=== PATIENT | male | born 1970 | race Caucasian/White ===

== ENCOUNTER → 2021-04-04 09:58 | Outpatient (BNVA) | payer SELFPAY | PROVIDERS: Visit Provider Nurse Practitioner Family | DX: Z00.00 Encounter for general adult medical examination without abnormal findings (principal) | CPT/HCPCS: 81000 ==

== ENCOUNTER 2022-01-10 09:51 | Outpatient (CLI) | payer OTHER, SELFPAY ==
--- NOTE | 2022-01-10 10:02 | CT_ITS ---
WS: [id number] CT HEAD TECHNIQUE: Noncontrast CT of the head obtained from the skullbase to the vertex. CLINICAL INFORMATION: NEW ONSET OCCIPITAL MEADOWS W/VERTIGO COMPARISON: None. DLP: 1223.[address] scans at [facility] use at least one of these dose optimization techniques: automated e xposure control; mA and/or kV adjustment per patient size (includes targeted exams where dose is matc hed to clinical indication); or iterative reconstruction. FINDINGS: No evidence of intracranial hemorrhage or mass effect. Ventricular system and basal cisterns are nino nt. No extra-axial fluid collections. No evidence of mass or mass effect. Normal menjivar-white different iation. Paranasal sinuses and mastoid air cells are well aerated. .Normal visualized soft tissues. CT/CT head wo con* [id number] IMPRESSION: 1. No evidence of intracranial hemorrhage or mass effect. 2. Normal menjivar-white differentiation. 3. Paranasal sinuses and mastoid air cells well aerated. 4. No acute intracranial findings.
== END 2022-01-10 09:52 | disposition home or self-care (01) ==
LOC: RAD 09:57
PROVIDERS: PCP Family Medicine; Visit Provider Family Medicine
DX: Z01.89 Encounter for other specified special examinations (principal); R51.9 Headache, unspecified; R42 Dizziness and giddiness
CPT/HCPCS: 70450

== ENCOUNTER → 2023-04-30 14:00 | Outpatient (BNVA) | payer OTHER, SELFPAY | PROVIDERS: PCP Family Medicine; Referring Provider Registered Nurse; Visit Provider Orthopaedic Surgery | DX: M54.9 Dorsalgia, unspecified (principal) | CPT/HCPCS: 72110 ==

== ENCOUNTER 2023-09-16 09:07 | Outpatient (CLI) | payer OTHER, SELFPAY ==
--- NOTE | 2023-09-16 09:30 | MR_ITS ---
WS: [id number] MRI LUMBAR SPINE NONCONTRAST HISTORY: Back pain COMPARISON: Lumbar spine radiographs 04/30/2023 TECHNIQUE: Sagittal and axial multisequence imaging is submitted. Quality this examination is compromised by patient's body habitus. Lipoma measuring 6.8 x 5.2 cm is d emonstrated in the posterior upper thorax. Normal lumbar alignment with no compression fractures or marrow edema. Very minimal disc desiccation throughout the lumbar spine. Disc spaces are well-maintained otherwise. Conus terminates normally at L1-2 disc level. L1-L2: Mild annular disc bulging encroaching upon the ventral thecal sac. There is mild disc encroach ment into the subarticular recesses with slight contact on the traversing L2 nerve roots. No foramina l stenosis. L2-L3: Diffuse annular disc bulging with a central disc protrusion. Deformity of the ventral thecal s ac. Mild central and bilateral subarticular recess stenosis. Disc encroachment upon the traversing L3 nerve roots. L3-L4: Mild disc bulging. Moderate ligamentum flavum and facet arthritis. Disc encroaches into the farrar barticular recesses. Mild central with mild to moderate bilateral subarticular recess stenosis. There is additional disc contacting the RIGHT exiting L3 nerve root. Mild bilateral foraminal stenosis. L4-L5: Mild annular disc bulging and facet arthritis. Central disc protrusion deforms the ventral the thompson sac. Very mild bilateral subarticular recess and foraminal stenosis. L5-S1: Mild disc bulging. There is a shallow RIGHT subarticular disc protrusion which probably contac ts the RIGHT S1 nerve root. Associated osteophytosis is also present. Mild LEFT with moderate RIGHT f oraminal stenosis. Paravertebral soft tissues are negative. IMPRESSION: 1. Multilevel mild to moderate stenoses with disc and facet arthritis throughout the lumbar spine. 2. L5-S1: Most significant stenosis on the RIGHT at L5-S1 in the RIGHT subarticular recess. There is moderate RIGHT foraminal stenosis with disc and osteophyte contacting the RIGHT L5 and S1 nerve roots . Focal RIGHT subarticular recess disc protrusion. 3. L1-2: Mild disc encroachment upon the subarticular recesses. 4. L2-3: Mild central and bilateral subarticular recess stenosis with encroachment upon the traversin g L3 nerve roots. 5. L3-4: Mild central with mild to moderate bilateral subarticular recess stenosis. Additional disc c ontact the RIGHT exiting L3 nerve root with mild bilateral foraminal stenosis. 6. L4-5 very minimal subarticular recess and foraminal stenosis at L4-5 with a central disc protrusio n.
== END 2023-09-16 09:08 | disposition home or self-care (01) ==
LOC: RAD 09:07
PROVIDERS: PCP Family Medicine; Visit Provider Orthopaedic Surgery
DX: M48.07 Spinal stenosis, lumbosacral region (principal); M25.78 Osteophyte, vertebrae; M47.816 Spondylosis without myelopathy or radiculopathy, lumbar region
CPT/HCPCS: 72148

== ENCOUNTER → 2024-04-01 09:37 | Outpatient (BNVA) | payer OTHER, SELFPAY | PROVIDERS: PCP Family Medicine; Referring Provider Emergency Medicine Emergency Medical Services; Visit Provider Surgery | DX: Z12.11 Encounter for screening for malignant neoplasm of colon (principal) | CPT/HCPCS: 99203 ==

== ENCOUNTER → 2024-05-05 06:47 | Outpatient (CLI) | payer OTHER, SELFPAY ==
--- NOTE | 2024-05-05 07:16 | MR_ITS ---
WS: [id number] MRI LEFT SHOULDER NONCONTRAST TECHNIQUE: Sagittal T2, coronal T1, T2 and proton density imaging. Axial gradient PDE imaging. CLINICAL INFORMATION: pain COMPARISON: None. FINDINGS: Advanced arthritis of the AC joint with fluid and edema. Small amount of subacromial subdeltoid fluid . Moderate downsloping the acromion with large subacromial spur. Subacromial spur measures approximat paige 2.1 cm better seen on the prior radiograph with impingement on the underlying supraspinatus. Tend inopathy supraspinatus and infraspinatus distally. Small undersurface and intrasubstance tears distal supraspinatus and infraspinatus. No tendon retraction. Chronic thinning of the supraspinatus. Normal teres minor. Normal subscapularis. Biceps tendon appears intact within the bicipital groove al though somewhat diminutive. Intra-articular biceps tendon appears intact but somewhat diminutive. Bic eps labral anchor appears intact. Degenerative fraying glenoid labrum. Normal bone marrow signal in t he humerus and glenoid. Small amount of subcoracoid fluid. MR/MR shoulder LT wo con* [id number] IMPRESSION: 1. Advanced arthritis of the AC joint with a prominent subacromial spur descri bed above. This impinges the supraspinatus. 2. Chronic thinning of the supraspinatus with tendinopathy. Tendinopathy infra spinatus. 3. Small undersurface and intrasubstance tears of the distal infraspinatus and supraspinatus which remain intact. 4. Biceps tendon appears intact within the bicipital groove although somewhat diminutive. Somewhat diminutive but intact intra-articular biceps tendon. 5. Moderate degenerative narrowing of the glenohumeral articulation.
== END | disposition home or self-care (01) ==
LOC: RAD 06:46
PROVIDERS: PCP Family Medicine; Visit Provider Nurse Practitioner Family
DX: M19.012 Primary osteoarthritis, left shoulder (principal); M75.42 Impingement syndrome of left shoulder; M75.92 Shoulder lesion, unspecified, left shoulder; S46.012A Strain of muscle(s) and tendon(s) of the rotator cuff of left shoulder, initial encounter
CPT/HCPCS: 73221

== ENCOUNTER → 2024-06-08 14:51 | Outpatient (BNVA) | payer OTHER, SELFPAY | PROVIDERS: PCP Family Medicine; Visit Provider Specialist | DX: M25.512 Pain in left shoulder (principal) | CPT/HCPCS: 36415; 73030; 80053; 81003; 85025 ==

== ENCOUNTER → 2024-06-23 11:41 | Outpatient (BNVA) | payer OTHER, SELFPAY | PROVIDERS: PCP Family Medicine; Visit Provider Family Medicine | DX: Z01.818 Encounter for other preprocedural examination (principal) | CPT/HCPCS: 93005 ==

== ENCOUNTER 2024-06-25 06:28 | Day surgery (SDC) | payer OTHER, SELFPAY ==
[2024-06-25] VITALS (9 sets, daily range): BP systolic 125–161; BP diastolic 63–89; PULSE 59–81; RESP 16–18; TEMP 36.1–36.4; O2SAT 91–95; BMI 48.3
[2024-06-25 06:52] LABS: Glucose Point of Care 210 mg/dL (70-110)
[2024-06-25] MEDS: gabapentin 300 mg Capsule PO (07:04)
[2024-06-25] MEDS: acetaminophen 1,000 MG/100 ML PIGGYBACK 400 MG IV (07:04)
[2024-06-25] MEDS: CELEcoxib 200 mg Capsule 400 MG PO (07:04)
[2024-06-25] MEDS: sodium chloride 0.9% 1,000 ML 30 ML IV (07:08)
--- NOTE | 2024-06-25 07:28 | ANES.PREANE2 ---
Pre-Anesthetic Assessment Height/Weight: Height 1.78 m Weight 152.861 kg Temp Pulse Resp BP Pulse Ox O2 Del Method 97.3 F L 59 L 18 145/89 95 Room Air 06/25/24 06:41 06/25/24 06:41 06/25/24 06:41 06/25/24 06:41 06/25/24 06:41 06/25/24 06:46 Operation Date: 06/25/24 08:15 Proposed Procedures p Acromioplasty(Left) - Geraldine Calvo MD s Distal Clavicle Resection(Left) - Geraldine Calvo MD s Debridement Upper Extremity(Left) - Geraldine Calvo MD Familial anesthetic complications: none Was Beta Hamzah taken within 24 hours: N/A Was Clonidine taken within 24 hours: N/A Last intake: Intake Last Liquid Date 06/24/24 Last Liquid Time 19:30 Last Solid Date 06/24/24 Last Solid Time 19:30 Social No alcohol and No tobacco Exam alert, oriented x 3, clear to auscultation bilaterally and regular rate & rhythm Airway Mallampati: Class IV Dentition: partials Comments: Comments: large neck circumference, excess submandibular tissues Pulmonary Sleep Apnea CV/HEM Hypertension Metabolic Diabetes Mellitus, Hyperlipidemia and Morbid Obesity Anesthetic Plan ASA status: 3 Anesthesia: General and Regional (specify below) Risk of > 500 ml blood loss (7ml/kg in children): No Medications/Allergies Home Medications Medication Instructions Recorded Confirmed Last Taken Type lovastatin 40 mg tablet 40 mg PO DAILY 04/04/21 06/24/24 06/24/24 History citalopram 30 mg capsule 30 mg PO DAILY 04/30/23 06/24/24 06/24/24 History losartan 25 mg tablet 25 mg PO DAILY 04/30/23 06/24/24 06/24/24 History tirzepatide 5 mg/0.5 mL 5 mg SUBCUT .WEEKLY 04/30/23 06/25/24 06/14/24 History subcutaneous pen injector (Woody) Allergies Allergy/AdvReac Type Severity Reaction Status Date / Time lisinopril Allergy Mild ADR-Cough Verified 06/25/24 06:38 Current Medications Generic Name Dose Route Start Last Admin Trade Name Freq PRN Reason Stop Dose Admin Sodium Chloride 1,000 mls @ 30 mls/hr 06/25/24 06:45 06/25/24 07:08 Sodium Chloride 0.9% IV 06/26/24 06:44 30 mls/hr .Q24H CHRISTIANO Administration PFSH Anesthesia Social History Smoking and tobacco/nicotine status: never used tobacco/nicotine Data Anesthesia Cardiac Studies: No Data to Display
--- NOTE | 2024-06-25 07:28 | SUR.PREOP ---
Time out was completed at bedside by Dr Pennington and a nerve block was performed for his right shoulder surgery
--- NOTE | 2024-06-25 07:29 | ANES.PROC ---
Anesthesia Procedures Procedure/Date: 06/25/24 Nerve Block ^: Nerve Block 1: Main Anesthesia: general anesthesia Time Out Performed: Yes Consent: requested by attending/covering physician, from patient, from other, risks and benefits reviewed and patient agrees to proceed Nerve block location: interscalene (L) Anesthesia monitors applied: pulse oximetry, EKG, BP cuff and oxygen Nerve block position: semi sitting Anesthetic Used: ropivicaine 0.5% (20 ml) and with decadron (4 mg) Ultrasound used to: recognize landmarks, visualize and ID brachial plexus, in supraclavicular region and visualize and ID interscalene groove Nerve Stimulator Used?: No Interscalene/Femoral BLK: 2 stimuplex 22 g needle used for position and inplane approach, visualize local anesthetic spread and no vascular puncture identified Injection: neg aspiration of heme Patient Tolerated Procedure: well Complications: none
--- NOTE | 2024-06-25 08:00 | W.PM.OPSUD ---
Surgery/Procedure H&P Update DATE OF PROCEDURE: June 25, 2024 DATE H&P PERFORMED: 06/08/24 H&P UPDATE INFORMATION: I have reviewed H&P completed within last 30 days, I have examined patient prior to procedure, No changes to prior documentation and H&P is in [facility] [place] EMR on date indicated PLANNED PROCEDURE: Operation Date: 06/25/24 08:15 Proposed Procedures p Acromioplasty(Left) - Geraldine Calvo MD s Distal Clavicle Resection(Left) - Geraldine Calvo MD s Debridement Upper Extremity(Left) - Geraldine Calvo MD
[2024-06-25] MEDS: ceFAZolin 3,000 MG in sodium chloride 0.9% (100 ml) 100 ML 200 MG IV (08:19)
[2024-06-25] MEDS: vancomycin 1,000 MG in sodium chloride 0.9% 250 ML 250 MG IV (09:00)
[2024-06-25] MEDS: ceFAZolin 1,000 mg SDV 1000 MG IRRIGATION (09:24)
--- NOTE | 2024-06-25 11:12 | PM.OP ---
Operative Report Date of procedure: June 25, 2024 Pre-op diagnosis: Left shoulder impingement with acromioclavicular joint osteoarthritis Post-op diagnosis: Left shoulder rotator cuff tear, complete, left acromioclavicular joint osteoarthritis, and left shoulder impingement Post-op findings: Large horizontal rotator cuff tear with significant impingement and severe degenerative arthritis of the acromioclavicular joint Procedure done: Left shoulder rotator cuff tear with acromioplasty and distal clavicle resection, debridement bursal tissues Implants: The Elvis Alpha Vent suture anchor, 5.5 mm bio composite with 2 strands of #2 braided S suture Specimens removed/disposition: None Pathology: None Surgeon: Geraldine Calvo MD Director Security Risk Management: Yanet Gottlieb NP, who services were required for positioning, retraction, positioning of the arm during the procedure, and closure. Anesthesia: General (Intubated, ASA 3) Estimated blood loss (mL): 50 IV fluids (mL): 1,200 Urine output (mL): 0 (No Gagnon) Complications: None Findings: As above Condition: stable Disposition: PACU (Then return to same-day surgery for discharge to home) Brief History: This 53 year old male presents today for same-day surgery for distal clavicle resection and acromioplasty with possible rotator cuff repair. Patient states pain in his shoulder has worsened over the years with pain starting about 10 years ago. Patient denies injury to his shoulder. Patient states pain starts in his shoulder and radiates down into his forearm. Patient denies numbness and tingling, he states it feels more like a pulled muscle. MRI findings were consistent with acromioclavicular joint osteoarthritis as well as impingement. The patient was scheduled for operative intervention. Risks and complications were discussed with him, and consents were signed. Questions were answered at that time. Procedure: The patient was brought to the operating theater and underwent general, intubated, ASA 3, with supplemental interscalene block anesthesia. The patient was placed in a beachchair position and subsequently the left upper extremity was prepped and draped in the usual fashion utilizing DuraPrep. The arm was draped free. A surgical pause was performed prior to commencement of the surgical procedure. At the time of the surgical pause, we confirmed the site and side of surgery as well as administration of appropriate preoperative antibiotics Ancef 3 g plus vancomycin 1 g. MRI was also reviewed at that time. Following the surgical pause, an incision was made at approximately the level of the acromioclavicular joint extending across the anterolateral corner of the acromion and distally as necessary. The incision was extended slightly proximally as well. Care was taken to avoid injury to the axillary nerve by limiting the distal extent of the incision. Dissection continued through skin and soft tissues using a scalpel. Hemostasis was obtained using electrocautery. Soft tissues were elevated off the acromion. An acromioplasty was then accomplished using a combination of a saw and a power rasp. With this, we were able to remove compression caused by the acromion. The rotator cuff was then evaluated to look for tears. Patient was found to have a horizontal tear from the insertion of the supraspinatus tendon. There was a complete tear. The rotator cuff tear was evaluated. The edges were freshened using a scalpel. The reattachment point bony on the humeral head was addressed with a rongeur to prepare a bed for appropriate repair. Repair was accomplished using the Elvis suture anchor. The tear orientation was noted to be horizontal. Suture anchor was used to return the tissue to the border of the greater tuberosity. Additional 0 Ethibond suture was used to further close the outer edge to the remaining soft tissue on the tuberosity. After the rotator cuff had been thus addressed, the shoulder was placed through further range of motion to assure there was no further evidence of rotator cuff tear. The acromioclavicular joint was exposed. A saw was then used to resect the distal clavicle without difficulty. The undersurface of the clavicle was palpated and was slightly further debrided. A power rasp was used to further smooth the area. When this was felt to be adequately resected, the wound was irrigated. Attention was then directed to closure. The wound was irrigated and closure was accomplished with 0 Vicryl in the capsular tissues overlying the acromioclavicular joint area as well as over the acromion and down into the deltoid muscle. 3-0 Monocryl was used to close the subcutaneous tissues followed by 4-0 Monocryl subcuticular closure. This was followed by Dermabond, Steri-Strips, and an OpSite. The patient was placed in a slingshot type sling and was returned to the recovery room in satisfactory condition. The patient will be discharged to home to follow-up in the office as scheduled. There were no complications and no specimens. Related Problem List Diagnoses (1) Arthritis of left acromioclavicular joint: (2) Impingement of left shoulder: (3) Left rotator cuff tear:
--- NOTE | 2024-06-25 12:00 | ANE.PACU2 ---
Inpatient post-anesthesia follow up: Airway intact: Yes Vital signs: Temperature 97.6 F Pulse Rate 71 Respiratory Rate 17 Blood Pressure 148/70 Pulse Oximetry 93 Oxygen Delivery Me thod Room Air Oxygen Flow Rate Fraction of Inspir ed Oxygen Hydration adequate: Yes Nausea and vomiting: No Pain level: 1 Mental status: Baseline
== END 2024-06-25 12:00 | disposition home or self-care (01) ==
PROVIDERS: PCP Nurse Practitioner Family; Visit Provider Specialist
PROC: (CPT 23130; principal; 2024-06-25 08:05)
PROC: (CPT 23120; 2024-06-25 08:05)
PROC: (CPT 23420; 2024-06-25 08:05)
DX: M25.812 Other specified joint disorders, left shoulder (principal); M19.012 Primary osteoarthritis, left shoulder; M75.102 Unspecified rotator cuff tear or rupture of left shoulder, not specified as traumatic; G47.30 Sleep apnea, unspecified; I10 Essential (primary) hypertension; E11.9 Type 2 diabetes mellitus without complications; E78.5 Hyperlipidemia, unspecified; E66.01 Morbid (severe) obesity due to excess calories; Z68.42 Body mass index [BMI] 45.0-49.9, adult
CPT/HCPCS: 23420; 36416; 82962; J0131; J0330; J0360; J0690; J1100; J2405; J2704; J2795; J3010; J3370; J3490; J7030

== ENCOUNTER → 2024-07-08 13:39 | Outpatient (BNVA) | payer OTHER, SELFPAY | PROVIDERS: PCP Nurse Practitioner Family; Visit Provider Nurse Practitioner | DX: Z98.890 Other specified postprocedural states (principal) | CPT/HCPCS: 73030; 99024 ==